=== PATIENT | female | born 1960 | race Caucasian/White ===

== ENCOUNTER 2017-02-16 15:00 | Observation (INO) ==
[2017-02-16] MEDS ORDERED: *HR* Adenosine 6 MG/2 ML VIAL IVP ONE (15:15)
[2017-02-16] MEDS ORDERED: 0.9 % Sodium Chloride 1,000 ML IVC ONE (15:15)
[2017-02-16 15:55] LABS: Basophils % 0.3 %; Eosinophils # 0.2 K/mcL (0.0-0.6); Eosinophils % 3.5 %; Hematocrit 36.7 % (35.3-44.9); Hemoglobin 12.3 g/dL (11.5-15.4); Lymphocytes # 1.2 K/mcL (0.6-4.6); Lymphocytes % 18.5 %; Mean Corpuscular HGB Conc 33.5 g/dL (31.6-35.5); Mean Corpuscular Hemoglobin 30.4 pg (28.0-33.3); Mean Corpuscular Volume 90.8 fL (83.0-100.0); Mean Platelet Volume 9.5 fL (9.4-12.4); Monocytes # 0.6 K/mcL (0.0-1.3); Monocytes % 9.6 %; Neutrophils # 4.2 K/mcL (1.6-8.9); Platelet Count 153 K/mcL (140-400); Red Blood Count 4.04 M/mcL (3.82-4.97); Red Cell Distribution Width 14.3 % (11.5-14.5); Segmented Neutrophils % 67.1 %
[2017-02-16 15:59] LABS: Prothrombin Time 11.1 Seconds (9.4-12.1)
[2017-02-16 16:02] LABS: Activated Partial Thrombo Time 28.3 Seconds (26.0-36.0)
[2017-02-16 16:06] LABS: Calcium 8.3 mg/dL (8.6-10.8); Potassium 2.8 mEq/L (3.5-4.5)
[2017-02-16 16:29] LABS: Thyroid Stimulating Hormone 4.506 mcIU/mL (0.350-4.840)
--- NOTE | 2017-02-16 16:31 | Emergency Department Note ---
Disposition Clinical Impression: Chest pain, rule out acute myocardial infarction, SVT (supraventricular tachycardia) Disposition: Admitted As Inpatient Condition: Good Chest Pain HPI - General Chief Complaint: ED Chest Pain Stated Complaint: TACHY/HTN Time Seen by Provider: 02/16/17 15:06 Source: patient Mode of arrival: ambulatory Limitations: no limitations Vital Signs Reviewed: Yes Nursing Notes Reviewed: Yes - History of Present Illness HPI Narrative: 56-year-old female presents with concerns of tachycardia and elevated blood pressure. Patient states she recently started dialysis, had a dialysis treatment today using a fistula in the left upper extremity and was also fitted for peritoneal dialysis and had a session of that as well. Patient states that prior to leaving they rechecked her blood pressure and heart rate which were both extremely elevated. Patient states her blood pressure was greater than 170 systolic. She states her heart rate was around 150. On initial evaluation emergency Department she does have a heart rate of about 145 on the monitor. She denies chest pain or shortness of breath, she does have a feeling of palpitations however she denies diaphoresis, near syncopal symptoms. Patient denies changing her medications. Denies illicit drug use. Denies caffeine use. Denies a history of dysrhythmia in the past. Severity scale (1-10): 0 - Related Data Home Medications Medication Instructions Recorded Confirmed Aspirin 81 mg PO DAILY 04/28/16 02/16/17 Atorvastatin [Lipitor] 40 mg PO HS 04/28/16 02/16/17 Cholecalciferol (D-3) [Vitamin D] 5,000 unit PO DAILY 04/28/16 02/16/17 Ferrous Sulfate 325 mg PO BIDWM 04/28/16 02/16/17 Furosemide [Lasix] 40 mg PO BID 04/28/16 02/16/17 Hydralazine HCl 50 mg PO TID 04/28/16 02/16/17 Insulin Glargine,Hum.rec.anlog 40 unit SQ HS 04/28/16 02/16/17 [Lantus Solostar] Nitroglycerin [Nitrostat] 0.4 mg SL Q5M PRN 04/28/16 02/16/17 SitaGLIPtin [Januvia] 100 mg PO DAILY 04/28/16 02/16/17 cloNIDine HCl [CloNIDine HCl] 0.1 mg PO BID 04/28/16 02/16/17 Calcium Acetate 667 mg PO TIDWM 06/14/16 02/16/17 Escitalopram [Lexapro] 20 mg PO DAILY 06/14/16 02/16/17 Levothyroxine [Synthroid] 50 mcg PO DAILY 06/14/16 02/16/17 NIFEdipine [Nifedipine ER] 60 mg PO DAILY 01/18/17 02/16/17 Allergies Allergy/AdvReac Type Severity Reaction Status Date / Time No Known Allergies Allergy Verified 01/18/17 09:32 All systems ED: reviewed and negative except as stated. Constitutional: Denies: fever, chills, weakness Cardiovascular: Reports: chest pain, palpitations Respiratory: Denies: cough, dyspnea, wheezes Gastrointestinal: Denies: abdominal pain, nausea, vomiting Chest Pain PMH - Past Medical History Medical history: Reports: diabetes, hyperlipidemia, hypertension, renal disease Surgical history: Reports: other Psychiatric history: Reports: anxiety, depression DIRECTOR IT history: Reports: no DIRECTOR IT history - Social History Smoking Status: Former smoker Alcohol use: Reports: none Drug use: Reports: none Physical Exam General: Alert and in no acute distress Skin: Warm, dry, intact. No evidence of erythema surrounding the peritoneal dialysis site. Head: Normocephalic and atraumatic Neck: Supple, trachea midline and no tenderness Cardiovascular: Tachycardia no murmur, normal perfusion Respiratory: CTAB, no wheezing, cough, or respiratory distress Musculoskeletal: Normal strength, no tenderness, swelling or deformity GI: Soft, nontender, nondistended. Bowel sounds present Neuro: A&O to person, place, time and situation. No focal deficits noted on exam Psychiatric: cooperative and appropriate mood and affect. - General Limitations: no limitations General appearance: alert Course Vital Signs Temperature 98.5 F 02/16/17 15:03 Pulse Rate 142 02/16/17 15:03 Respiratory Rate 22 02/16/17 15:03 Blood Pressure 174/90 02/16/17 15:03 O2 Sat by Pulse Oximetry 97 02/16/17 15:03 Temperature 98.7 F 02/16/17 23:48 Pulse Rate 92 02/16/17 23:48 Respiratory Rate 16 02/16/17 23:48 Blood Pressure 157/67 02/16/17 23:48 O2 Sat by Pulse Oximetry 92 02/16/17 23:48 Oxygen Delivery Oxygen Delivery Nasal Cannula Chest Pain - MDM Narrative Medical decision making narrative: Patient given adenosine after discussion of the risks and benefits. Her heart rate dropped immediately from 140 down to 85. She maintained a heart rate of 80s 90 and was given 500 mL of IV fluid. She then started complaining of a central chest pressure. Patient will be admitted to the hospital for further care and evaluation of her chest pain and possible SVT. - Medical Records Medical records reviewed: Yes I reviewed the patient's medical records. - Lab Data Lab results reviewed: Yes I reviewed the patient's lab results. Result diagrams: 02/16/17 15:30 02/16/17 15:30 Lab Results 02/16/17 02/16/17 02/16/17 Range/Units 15:30 15:30 15:30 WBC 6.3 (4.3-11.1) K/mcL RBC 4.04 (3.82-4.97) M/mcL Hgb 12.3 (11.5-15.4) g/dL Hct 36.7 (35.3-44.9) % MCV 90.8 (83.0-100.0) fL MCH 30.4 (28.0-33.3) pg MCHC 33.5 (31.6-35.5) g/dL RDW 14.3 (11.5-14.5) % Plt Count 153 (140-400) K/mcL MPV 9.5 (9.4-12.4) fL Immature Gran % 1.0 (0-4) % Seg Neutrophils % 67.1 % Lymphocytes % 18.5 % Monocytes % 9.6 % Eosinophils % 3.5 % Basophils % 0.3 % Neutrophils # 4.2 (1.6-8.9) K/mcL Lymphocytes # 1.2 (0.6-4.6) K/mcL Monocytes # 0.6 (0.0-1.3) K/mcL Eosinophils # 0.2 (0.0-0.6) K/mcL Basophils # 0.0 (0.0-0.2) K/mcL PT 11.1 (9.4-12.1) Seconds INR 1.0 APTT 28.3 (26.0-36.0) Seconds Sodium 138 (136-145) mEq/L Potassium 2.8 L (3.5-4.5) mEq/L Chloride 96 L (98-109) mEq/L Carbon Dioxide 34 H (19-29) mEq/L BUN 13 (7-20) mg/dL Creatinine 2.67 H (0.57-1.11) mg/dL Est GFR ( Amer) 22 L (> 60) Est GFR (Non-Af Amer) 18 L (> 60) BUN/Creatinine Ratio 5 L (6-26) Glucose 197 H (70-99) mg/dL Calculated Osmolality 292 (280-300) Calcium 8.3 L (8.6-10.8) mg/dL Troponin I (0-0.03) ng/mL TSH 4.506 (0.350-4.840) mcIU/mL 02/16/17 Range/Units 15:30 WBC (4.3-11.1) K/mcL RBC (3.82-4.97) M/mcL Hgb (11.5-15.4) g/dL Hct (35.3-44.9) % MCV (83.0-100.0) fL MCH (28.0-33.3) pg MCHC (31.6-35.5) g/dL RDW (11.5-14.5) % Plt Count (140-400) K/mcL MPV (9.4-12.4) fL Immature Gran % (0-4) % Seg Neutrophils % % Lymphocytes % % Monocytes % % Eosinophils % % Basophils % % Neutrophils # (1.6-8.9) K/mcL Lymphocytes # (0.6-4.6) K/mcL Monocytes # (0.0-1.3) K/mcL Eosinophils # (0.0-0.6) K/mcL Basophils # (0.0-0.2) K/mcL PT (9.4-12.1) Seconds INR APTT (26.0-36.0) Seconds Sodium (136-145) mEq/L Potassium (3.5-4.5) mEq/L Chloride (98-109) mEq/L Carbon Dioxide (19-29) mEq/L BUN (7-20) mg/dL Creatinine (0.57-1.11) mg/dL Est GFR ( Amer) (> 60) Est GFR (Non-Af Amer) (> 60) BUN/Creatinine Ratio (6-26) Glucose (70-99) mg/dL Calculated Osmolality (280-300) Calcium (8.6-10.8) mg/dL Troponin I 0.00 (0-0.03) ng/mL TSH (0.350-4.840) mcIU/mL - Radiology Data Radiology results reviewed: Yes I reviewed the patient's radiology results. - EKG Data EKG attestation: Yes I reviewed and interpreted this EKG. EKG results narrative: ECG - interpreted by ED physician. Rate 143, tachycardic without recognizable and consistent P waves. Unclear whether this is atrial flutter versus SVT ECG - interpreted by ED physician. Rate 95, normal sinus rhythm, no STEMI, AR, QT intervals, and QRS within normal limits Heart Score - Score History: Moderately Suspicious EKG: Normal Age: Less than 45 Risk Factors: Equal/Greater than 3 risk factor or history of atherosclerotic disease Troponin: Less than normal limit HEART Score Total: 3
[2017-02-16] MEDS ORDERED: Calcium Gluconate 1,000 MG in D5% in Water 100 ML IVPB ONE (16:37)
[2017-02-16] MEDS ORDERED: Aspirin 81 MG TAB.CHEW PO ONE (18:34)
[2017-02-16] MEDS ORDERED: Naloxone 0.4 MG/ML INJ IVP PRN (21:08)
--- NOTE | 2017-02-16 21:08 | Internal Med History&Physical ---
Date of Encounter: 02/16/17 Time of Encounter: 21:00 Assessment and Plan (1) Hypertensive urgency Current visit: Yes Status: Acute it is unclear the cause of her hypertension and tachycardia, she has a hx of anxiety so it is unclear if this weighed in, she has no known CAD hx and follows with Dr Sanchez, we will continue her home medications and discharge her home when stable for her scheduled appt on Sunday with Dr Sanchez, she denied chest pain when asked, no need for inpatient chest pain workup (2) Hypokalemia Current visit: Yes Status: Acute unclear etiology, could be related to poor intake, we will replace and follow BMP (3) Atrial tachycardia Current visit: Yes Status: Acute improved with adenosine, she denied prior episode, she had hypokalemia which may have played into it, her TSH is normal, she follows up with a box toe cutter ad has an appt on Sunday, we will have her followup, she is in sinus rhythm currently (4) ESRD (end stage renal disease) on dialysis Current visit: Yes Status: Chronic she is on hemodialysis MWF and is being transitioned to peritoneal dialysis, she is euvolumic currently, we will get nephrology to weigh in should she need inpatient HD (5) HTN (hypertension) Current visit: Yes Status: Chronic per HTN urgency Qualifiers: Hypertension type: essential hypertension Qualified Code(s): I10 - Essential (primary) hypertension (6) Diabetes Current visit: Yes Status: Chronic hx of DM type 2 on insulin regimen, A1c was 8.2% in 12/2016, we will continue same with [facility] Qualifiers: Diabetes mellitus type: type 2 Diabetes mellitus complication status: with kidney complications Diabetes mellitus complication detail: with chronic kidney disease 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 use Chronic kidney disease stage: on chronic dialysis Qualified Code(s): E11.22 - Type 2 diabetes mellitus with diabetic chronic kidney disease; N18.6 - End stage renal disease; Z79.4 - petroleum terminal plant operator (current) use of insulin; Z99.2 - Dependence on renal dialysis (7) Hypothyroidism Current visit: Yes Status: Chronic will continue home medication Qualifiers: Hypothyroidism type: acquired Qualified Code(s): E03.9 - Hypothyroidism, unspecified Internal Medicine - H&P: HPI Chief complaint: sent from dialysis center Admitted From: Emergency Dept Plans for Post Hospital Care: Home History of present illness: Ms. Gipson is a 56 year old female with a history of ESRD on HD since June 2016 was sent to the ER of [place] for rapid heart rate and high BP readings. She reports being in her usual state of health until she was in HD today. She had gone for her regular HD and afterwards, she had palpitations and her heart rate was noted to be 143, associated with elevated BP of 150 systolic, repeat vitals showed heart rate in the 140's with systolic BP in the 170's. She denies chest pain, dyspnea but admitted to feeling fatigued at the time. She denies lightheadedness, diaphoresis, nausea or vomiting. This is her first such episode. She reports that she was in the stages of being transitioned to home peritoneal dialysis based on choice. PAST MEDICAL HISTORY HTN ESRD on HD MWF Hyperlipidemia DM type 2 on insulin Hypothyroidism Anxiety Depression PAST SURGICAL HISTORY LUE AVF creation Right toe surgery for hammer toe SOCIAL HISTORY She has never smoked, denies alcohol use or illicit drugs, she is with one adult child. FAMILY HISTORY Both parents are , mother had ESRD on HD, she also had HTN and DM and from [place] in her 60's, father had an abdominal aneurysm whose repair was complicated by fall with hip fracture and subsequently Past Med Surg Social Fam HX - Past Medical History Medical history: diabetes, hyperlipidemia, hypertension, renal disease Psychiatric history: anxiety, depression - Past Surgical History Surgical History: other - Social History Smoking Status: Former smoker Smokeless Tobacco Status: No Alcohol use: none Drug use: none Internal Medicine - H&P: Meds Aspirin 81 mg PO DAILY 04/28/16 [History] Atorvastatin [Lipitor] 40 mg PO HS 04/28/16 [History] Cholecalciferol (D-3) [Vitamin D] 5,000 unit PO DAILY 04/28/16 [History] Ferrous Sulfate 325 mg PO BIDWM 04/28/16 [History] Furosemide [Lasix] 40 mg PO BID 04/28/16 [History] Hydralazine HCl 50 mg PO TID 04/28/16 [History] Insulin Glargine,Hum.rec.anlog [Lantus Solostar] 40 unit SQ HS 04/28/16 [History ] Nitroglycerin [Nitrostat] 0.4 mg SL Q5M PRN 04/28/16 [History] SitaGLIPtin [Januvia] 100 mg PO DAILY 04/28/16 [History] cloNIDine HCl [CloNIDine HCl] 0.1 mg PO BID 04/28/16 [History] Calcium Acetate 667 mg PO TIDWM 06/14/16 [History] Escitalopram [Lexapro] 20 mg PO DAILY 06/14/16 [History] Levothyroxine [Synthroid] 50 mcg PO DAILY 06/14/16 [History] NIFEdipine [Nifedipine ER] 60 mg PO DAILY 01/18/17 [History] Allergies No Known Allergies Allergy (Verified 01/18/17 09:32) All Systems PM: A 10-system review of systems was performed and is negative for pertinent findings except as documented above in the HPI. - Constitutional Vitals: Temp Pulse Resp BP Pulse Ox 98.7 F 86 16 175/66 97 02/16/17 19:30 02/16/17 19:30 02/16/17 19:30 02/16/17 19:30 02/16/17 19:30 GENERAL: Adult female, lying in bed looking exhausted, Alert, not in acute distress, HEENT: NC/AT, EOMI, PERRLA, anicteric sclera, normal conjunctiva, supple, clear nares, moist mucous membranes, RESP: Lungs are clear to auscultation bilaterally, good AE bilaterally, No crackles or wheeze CARDIO: Normal hearts sounds; S1 and 2, RRR systolic murmur, no JVD, no ankle edema GI: PD catheter seen, soft, full, no tenderness, no organomegaly felt, normal bowel sounds heard MUSCULOSKELETAL: grossly normal movements bilaterally, no deformities noted, no calf tenderness, LUE AVF NEUROLOGIC: CN 2-12 intact grossly. No gross motor/sensory deficit appreciated, PSYCHIATRY: AAO x 3. Mood is fair, SKIN: no skin rash or ulcers noted Internal Med - H&P Results - Labs CBC & Chem 7: 02/16/17 15:30 02/16/17 15:30 - EKG Data -: EKG Interpreted by Myself EKG shows normal: sinus rhythm Rate: tachycardia - Diagnostic Studies Chest x-ray Status: image reviewed by me
[2017-02-16] MEDS ORDERED: Nitroglycerin 0.4 MG TAB.SUBL SL PRN (21:09)
[2017-02-16] MEDS ORDERED: *HR* Dextrose 50 % in Water (Syg) 50 ML SYRINGE IVP PRN (21:11)
[2017-02-16] MEDS ORDERED: Dextrose Gel 15 GM PO PRN ×2 (21:11)
[2017-02-16] MEDS ORDERED: D5% in Water 1,000 ML IVC PRN (21:11)
[2017-02-16] MEDS ORDERED: Insulin LISPRO 300 UNITS/3 ML VIAL SQ SCH (21:15)
[2017-02-16] MEDS ORDERED: Insulin DETEMIR 100 UNIT/ML X5UNITS SQ SCH (21:15)
[2017-02-16] MEDS: NIFEdipine XL (24 HR) 60 MG TAB.ER.24 PO SCH (22:27)
[2017-02-16] MEDS: hydrALAZINE 25 MG TABLET PO SCH (23:10)
[2017-02-16] MEDS: cloNIDine HCl 0.1 MG TABLET PO SCH (23:11)
[2017-02-16] MEDS: Insulin LISPRO 300 UNITS/3 ML VIAL SQ SCH (23:27)
[2017-02-17] MEDS ORDERED: Potassium Chloride Elixir 20 MEQ/15 ML UDC PO ONE (03:37)
[2017-02-17 06:20] LABS: Calcium 8.7 mg/dL (8.6-10.8); Magnesium 1.5 mg/dL (1.6-2.6); Phosphorous 2.9 mg/dL (2.3-4.7); Potassium 3.2 mEq/L (3.5-4.5)
[2017-02-17] MEDS ORDERED: *HR* Heparin 5,000 UNIT/ML VIAL SQ SCH (06:45)
[2017-02-17] MEDS: Insulin LISPRO 300 UNITS/3 ML VIAL SQ SCH (07:53)
[2017-02-17] MEDS ORDERED: Calcium Acetate 667 MG CAPSULE PO SCH (08:00)
[2017-02-17] MEDS: cloNIDine HCl 0.1 MG TABLET PO SCH (08:03)
[2017-02-17] MEDS: hydrALAZINE 25 MG TABLET PO SCH (08:03)
[2017-02-17] MEDS: NIFEdipine XL (24 HR) 60 MG TAB.ER.24 PO SCH (08:04)
[2017-02-17 08:06] VITALS: BP 149/77
[2017-02-17] MEDS ORDERED: Magnesium Sulfate 1 GM in D5% in Water 100 ML IVPB ONE (08:39)
--- NOTE | 2017-02-17 08:51 | Discharge Summary ---
<Rayray Felipe - Last Filed: 02/17/17 08:48> Date of Encounter: 02/17/17 Time of Encounter: 08:00 - Discharge Diagnosis (1) Hypertensive urgency Priority: Primary Status: Acute Comments: - Was noted to have blood pressure as high as 174/90 in ED. - Likely secondary to inadequate antihypertensive medication coverage yesterday as patient reports was holding her BP medications for hemodialysis. - Improves with patient's home antihypertensive regimen with BP 149/77 this morning. (2) Atrial tachycardia Priority: Secondary Status: Resolved Comments: - Was noted to have heart rates in 140s. - Improved after one dose of adenosine 6 mg IV in ED. - Currently sinus rhythm at rate of 80s. - Patient already has scheduled appointment with Dr. Sanchez of [place] [facility] on 02/20/17. (3) Hypokalemia Priority: Secondary Status: Acute Comments: - K 2.8 on admission. - K improves to 3.2 after K supplement. (4) ESRD (end stage renal disease) on dialysis Priority: Secondary Status: Chronic Comments: - Currently on hemodialysis MWF but will soon be transitioned to peritoneal dialysis per patient. (5) Hypothyroidism Priority: Secondary Status: Chronic Qualifiers: Hypothyroidism type: acquired Qualified Code(s): E03.9 - Hypothyroidism, unspecified - Discharge Medications Home Medications: Aspirin 81 mg PO DAILY 04/28/16 [History] Atorvastatin [Lipitor] 40 mg PO HS 04/28/16 [History] Cholecalciferol (D-3) [Vitamin D] 5,000 unit PO DAILY 04/28/16 [History] Ferrous Sulfate 325 mg PO BIDWM 04/28/16 [History] Furosemide [Lasix] 40 mg PO BID 04/28/16 [History] Hydralazine HCl 50 mg PO TID 04/28/16 [History] Insulin Glargine,Hum.rec.anlog [Lantus Solostar] 40 unit SQ HS 04/28/16 [History ] Nitroglycerin [Nitrostat] 0.4 mg SL Q5M PRN 04/28/16 [History] SitaGLIPtin [Januvia] 100 mg PO DAILY 04/28/16 [History] cloNIDine HCl [CloNIDine HCl] 0.1 mg PO BID 04/28/16 [History] Calcium Acetate 667 mg PO TIDWM 06/14/16 [History] Escitalopram [Lexapro] 20 mg PO DAILY 06/14/16 [History] Levothyroxine [Synthroid] 50 mcg PO DAILY 06/14/16 [History] NIFEdipine [Nifedipine ER] 60 mg PO DAILY 01/18/17 [History] Allergies/Adverse Reactions: Allergies No Known Allergies Allergy (Verified 01/18/17 09:32) Date of admission: 02/16/17 17:31 Primary care physician: Brandin Lopez Consults: 02/17/17 01:09 Consult to Calcine Furnace Loader [CONS] Routine Reason for SW Consult: PT HAS OP HD WITH [facility]VAJAL Discharging clinician: Rayrya Felipe Anticipated date of discharge: 02/17/17 - Patient Status Disposition: Home, Self-Care Condition: Good Functional capacity at discharge: independent ambulation Overall status at discharge: patient is progressing back to baseline - Discharge Instructions Follow Up With: Brandin Lopez MD [Primary Care Provider] - (Within a week) Kelvin Sanchez MD [Partnered Physician] - (Patient already has scheduled appointment on 02/20/17.) Additional Instructions: Please continue your home dose clonidine, hydralazine and nifedipine and make sure your are taking those on time. Please follow up with your primary care provider within a week. Please follow up with Dr. Sanchez of [place] [facility] on 02/20/17. - Diet and Activity Activity: increase activity as tolerated Diet: low fat, low cholesterol, low salt diet Hospital course: Ms. Gipson is a 56 year old female with PMH of HTN, hypothyroidism and ESRD on HD MWF. Patient was sent to [place] ED for rapid heart rate and elevated blood pressure after hemodialysis. Patient was noted to have heart rates in 140s and blood pressure as high as 174/90 in ED. The tachycardia improved after one dose of adenosine 6 mg IV in ED. Patient was also noted to have hypokalemia (K 2.8, which later improves to 3.2 after K supplement). Patient denies chest pain. Patient was admitted on 02/16/17 for hypertensive urgency, which is likely secondary to inadequate antihypertensive medication coverage yesterday as patient reports was holding her BP medications for hemodialysis. And her blood pressure improves with patient's home antihypertensive regimen with BP 149/77 this morning. TSH is normal and patient remains sinus rhythm at rate of 80s. Given patient reports no complaint and remains hemodynamically stable, will discharge patient home with her home dose clonidine, hydralazine and nifedipine. Patient is instructed to take her BP medications on time. Patient already has scheduled appointment with Dr. Sanchez of [place] [facility] on 02/20/17. Patient should also follow up with her primary care provider within a week. Patient verbalized her understanding and agreed with the discharge plan. All questions answered. - Time Spent with Patient Total time spent providing and/or coordinating discharge services: Greater than 30 minutes (43 minutes) - Constitutional Vitals: Temp Pulse Resp BP Pulse Ox 98.5 F 80 16 149/77 96 02/17/17 08:04 02/17/17 08:04 02/17/17 08:04 02/17/17 08:04 02/17/17 08:04 General appearance: Present: cooperative, A&O X 3, no acute distress, answers questions appropriately - Head Head exam: Present: atraumatic, normocephalic - Eye Eye exam: Present: EOMI, PERRL, conjuntiva pink, sclera anicteric - Neck Neck exam general surgery: Present: supple, trachea midline. Absent: lymphadenopathy - Respiratory Respiratory exam: Present: CTAB. Absent: accessory muscle use, rales, rhonchi, wheezes - Cardiovascular Cardiovascular exam: Present: RRR, +S1, +S2. Absent: diastolic murmur, gallop, rubs, systolic murmur - GI/Abdominal GI/Abdominal exam: Present: normal bowel sounds, soft, no peritoneal signs. Absent: distended, tenderness - Extremities Exam Extremities exam: Present: warm, radial pulses palpable and symetrical. Absent : calf tenderness, cyanotic, pedal edema - Neurological Exam Neurological exam: Present: oriented X3, no focal deficits. Absent: pronater drift, facial droop, speech deficit - Skin Skin exam: Present: dry, intact, warm <Mitchell Luis - Last Filed: 02/17/17 09:27> Date of Encounter: 02/17/17 Date of admission: 02/16/17 17:31 Primary care physician: Brandin Lopez Consults: 02/17/17 01:09 Consult to Calcine Furnace Loader [CONS] Routine Reason for SW Consult: PT HAS OP HD WITH [facility] course: Ms. Gipson is a 56 year old female - Time Spent with Patient Total time spent providing and/or coordinating discharge services: - Constitutional Vitals: Temp Pulse Resp BP Pulse Ox 98.5 F 80 16 149/77 96 02/17/17 08:04 02/17/17 08:04 02/17/17 08:04 02/17/17 08:04 02/17/17 08:04 - Attending Attestation Possible SVT, no recurrence during her hospitalization Stable to be discharged I examined this patient and my medical decision-making was reviewed with the Resident Physician. I agree with the documented findings, disposition and treatment plan as described except to the extent set forth below.
[2017-02-17] MEDS ORDERED: Potassium Chloride Elixir 20 MEQ/15 ML UDC PO SCH (09:00)
[2017-02-17] MEDS ORDERED: Aspirin 81 MG TAB.CHEW PO SCH (09:00)
[2017-02-17] MEDS ORDERED: *HR* SitaGLIPtin 100 MG TABLET PO SCH (09:00)
[2017-02-17] MEDS ORDERED: Cholecalciferol (D-3) 1,000 UNIT TABLET PO SCH (09:00)
[2017-02-17] MEDS ORDERED: Magnesium Oxide 400 MG TABLET PO ONE (09:32)
--- NOTE | 2017-02-19 12:46 | Electrocardiograph Report ---
[place] [id number] Test Date: 2017-02-16 Pat Name: Damaris Gipson Department: 104 Room: 2A22 Gender: F [employer] Line Worker: OSCAR : 1960 Requested By: Rambo Riojas Order Number: [id number] Reading MD: Kelvin Sanchez MD Measurements Intervals [place] Rate: 140 P: -41 MN: 176 QRS: -36 QRSD: 85 T: 75 QT: 328 QTc: 409 Interpretive Statements SINUS TACHYCARDIA, POSSIBLE ATRIAL FLUTTER MARKED LEFT AXIS DEVIATION LEFT VENTRICULAR HYPERTROPHY AND ST-T CHANGE Poor R wave progression Electronically Signed On 02-19-2017 12:45:02 EDT by Kelvin Sanchez MD
--- NOTE | 2017-02-19 12:53 | Electrocardiograph Report ---
[place] [id number] Test Date: 2017-02-16 Pat Name: Damaris Gipson Department: 104 Room: 2A22 Gender: F Retail Analyst: OSCAR : 1960 Requested By: Mitchell Luis Order Number: [id number] Reading MD: Kelvin Sanchez MD Measurements Intervals [place] Rate: 95 P: 35 MS: 137 QRS: -32 QRSD: 94 T: 52 QT: 378 QTc: 431 Interpretive Statements SINUS RHYTHM MARKED LEFT AXIS DEVIATION MODERATE VOLTAGE CRITERIA FOR LVH Electronically Signed On 02-19-2017 12:52:05 EDT by Kelvin Sanchez MD
== END 2017-02-17 10:44 | disposition home or self-care (01) ==
LOC: 2ANU 15:00 → EMEROO 15:00 → 2ANU 19:07
PROVIDERS: ADMIT Internal Medicine; ATTEND Internal Medicine